=== PATIENT | male | born 1970 ===

== ENCOUNTER 2025-03-25 07:03 | Day surgery (SDC) | payer BC ==
[~2025-03-25 07:03] MED LIST: Sodium Chloride 0.9% 10 ML Syringe FLUSH PRN; Sodium Chloride 0.9% 10 ML Syringe FLUSH SCH
[2025-03-25] MEDS: Lactated Ringers 1,000 ML IV SCH (07:36)
[2025-03-25] MEDS ORDERED: Propofol 200 MG/20 ML SDV ONE (07:40)
== END 2025-03-25 09:40 | disposition home or self-care (01) ==
LOC: JD.SDS 07:03
PROVIDERS: ATTEND Surgery
DX: Z12.11 Encounter for screening for malignant neoplasm of colon (principal); D12.2 Benign neoplasm of ascending colon; D12.3 Benign neoplasm of transverse colon; D12.4 Benign neoplasm of descending colon; D12.5 Benign neoplasm of sigmoid colon; R19.5 Other fecal abnormalities; I10 Essential (primary) hypertension; E66.3 Overweight; F17.200 Nicotine dependence, unspecified, uncomplicated; Z86.0100 Personal history of colon polyps, unspecified
CPT/HCPCS: 45380; J2003; J2704; J7120; 00811